=== PATIENT | female | born 1985 | race Caucasian/White ===

== ENCOUNTER 2016-10-23 13:57 | Outpatient (CLI) | payer OTHER ==
[2015-12-13 22:33] VITALS: BP 114/79
[2016-10-23 14:43] LABS: eGFR (African) > 60; eGFR (Non-African) > 60
== END 2016-10-23 14:00 ==
LOC: LAB 13:57
PROVIDERS: ATTEND Physician Assistant
DX: R20.0 Anesthesia of skin (principal)
CPT/HCPCS: 36415; 80053; 84443

== ENCOUNTER 2018-02-24 13:25 | Outpatient (CLI) | payer OTHER ==
[2015-12-13 22:33] VITALS: BP 114/79
[2018-02-24 14:08] LABS: BASOPHILS % 0.5 (0.0-1.5); EOSINOPHILS % 4.6 % (0.0-6.8); MEAN CORPUSCULAR HEMOGLOBIN 30.3 pg (28.0-34.0); MEAN CORPUSCULAR VOLUME 89.6 fl (80.0-100.0); MONOCYTES % 3.7 % (0.0-11.0)
[2018-02-24 14:24] LABS: eGFR (African) > 60; eGFR (Non-African) > 60
== END 2018-02-24 13:26 ==
LOC: LAB 13:25
PROVIDERS: ATTEND Physician Assistant
DX: R53.83 Other fatigue (principal)
CPT/HCPCS: 36415; 80053; 84436; 84479; 85025

== ENCOUNTER 2018-11-27 18:09 | Emergency (ER) | payer OTHER ==
--- NOTE | 2018-11-27 18:44 | ED Physician Documentation ---
Chest Pain - HISTORIAN Historian: patient - HPI Stated Complaint: Shortness of breath Chief Complaint: Chest Pain Additional Information: Patient presents to ED with chest pressure, 8/10, nonradiating. Patient was riding in the back seat of a car when her chest pressure began. She has a history of anxiety and was started on Prozac last Wednesday. She also takes hydroyzine as needed for anxiety. Patient took one tablet after her chest pressure started with no improvement. Patient is currently on antibiotics for urinary tract infection and states she has no urinary symptoms currently. Patient denies nausea, vomiting, diaphoresis, or dizziness. Onset: hours (4) Timing: sudden onset Duration: constant Last known Well Date: 11/27/18 Last Known Well Time: 14:00 Context: rest Severity: moderate Quality: pressure Chest Pain Radiation: no radiation Chest Pain Signs/Symptoms: denies: nausea, vomiting, diaphoresis, dizziness, palpitations Worsened By: nothing Relieved By: nothing - ROS CONST: denies: fever MS/LYMPH: denies: ankle swelling GI/: denies: vomiting, nausea EYES/ENT: none SKIN/ENDO: none NEURO/PSYCH: none - PAST HX VT risk factors: no pertinent history DVT/PE Risk Factors: none TAD/AAA risk factors: none Neuro deficit: none GI disease: none Lung disease: none Surgeries/Procedures: none Allergies/Adverse Reactions: Allergies Allergy/AdvReac Type Severity Reaction Status Date / Time codeine [Codeine] Allergy Hives Verified 11/27/18 18:32 - SOCIAL HX Smoking History: non-smoker Alcohol Use: none Drug Use: none - FAMILY HX Family HX: none - VITAL SIGNS Vital Signs: Vital Signs Temp Pulse Resp BP Pulse Ox 98.6 F 86 22 115/75 100 11/27/18 18:11 11/27/18 18:11 11/27/18 18:11 11/27/18 18:11 11/27/18 18:11 - REVIEWED ASSESSMENTS Nursing Assessment Reviewed: Yes Vitals Reviewed: Yes Progress - Progress Progress: 1911 Lab was called at 1855. 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 1917 Patient feeling better, currently on cell phone. - EKG/XRAY/CT EKG: NSR Comments: 1841 NSR 79 bpm ED Results Lab/Radiology - Radiology Radiology Impressions: Report Submission Date: November 27, 2018 6:53:51 PM CDT Patient Study Name: DIMPLE WOLFE Date: November 27, 2018 6:37:29 PM CDT Modality Type: DX Gender: F Description: CHEST 1VIEW : 85 Institution: [facility] Physician: CHINMAY RITCHIE Chest, 1 view History: ANXIETY AND CHEST PAIN WITH SHORTNESS OF BREATH TODAY. PATIENT DENIES CHANCE OF AND WAS SHIELDED FOR EXAM. Findings: The heart size is normal. The lungs are clear. There is no pleural effusion or pneumothorax identified. The osseous structures are normal. Impression: 1. No acute pulmonary disease. Electronically signed on November 27, 2018 6:53:51 PM CDT by: Brandyn Conde - Orders Orders: ED Orders Category Date Time Status Place IV Lock 1T Care 11/27/18 18:38 Ordered CHEST 1VIEW [RAD] Stat Exams 11/27/18 Ordered CBC/PLATELET/DIFF Routine Lab 11/27/18 Ordered CMP Routine Lab 11/27/18 Ordered TROPONIN I Stat Lab 11/27/18 Ordered OLANZapine ODT [ZyPREXA ODT] Med 11/27/18 18:38 Once 10 mg PO NOW ONE EKG WITH COMPARISON Stat Ther 11/27/18 Ordered Chest Pain Physical Exam - EXAM General Appearance: no acute distress, anxious EENT: JEFFERY Respiratory: no resp. distress, chest non-tender, nml breath sounds CVS: reg. rate & rhythm Abdomen: soft, normal bowel sounds. No: tenderness Skin: warm/dry Extremities: non-tender, no edema Neuro: oriented X3, mood/affect nml Discharge Clincal Impression: Anxiety Referrals: Primary Doctor,No [Primary Care Provider] - 2 Days Additional Instructions: 1. Continue to take anxiety medications as previously prescribed by PCP 2. Follow up with PCP within 1 week 3. Return to ER for new or worsening symptoms Condition: Stable Disposition: 01 HOME, SELF-CARE Decision to Admit: NO Date of Decison to Admit: 11/27/18 Decision Time: 20:09
[2018-11-27 19:43] LABS: MEAN CORPUSCULAR HEMOGLOBIN 30.7 pg (28.0-34.0)
[2018-11-27 19:44] LABS: BASOPHILS % 0.7 % (0.0-1.5); EOSINOPHILS % 4.2 % (0.0-6.8); MONOCYTES % 8.2 % (0.0-11.0); NEUTROPHILS # 5.4 # k/uL (1.4-7.7)
[2018-11-27 20:03] LABS: eGFR (Non-African) > 60
[2018-11-27 20:42] VITALS: BP 110/70
--- NOTE | 2018-11-27 20:50 | Diagnostic Imaging Report ---
CHINMAY RITCHIE [facility] [id number] [facility] [address] [place], [place]. [address] Report Submission Date: November 27, 2018 6:53:51 PM CDT Patient Study Name: DIMPLE WOLFE Date: November 27, 2018 6:37:29 PM CDT Modality Type: DX Gender: F Description: CHEST 1VIEW : 85 Institution: [facility] Physician: CHINMAY RITCHIE Chest, 1 view History: ANXIETY AND CHEST PAIN WITH SHORTNESS OF BREATH TODAY. PATIENT DENIES CHANCE OF AND WAS SHIELDED FOR EXAM. Findings: The heart size is normal. The lungs are clear. There is no pleural effusion or pneumothorax identified. The osseous structures are normal. Impression: 1. No acute pulmonary disease. Electronically signed on November 27, 2018 6:53:51 PM CDT by: Brandyn BALLARD
== END 2018-11-27 20:43 | disposition home or self-care (01) ==
LOC: ED 18:09
DX: F41.9 Anxiety disorder, unspecified (principal)
CPT/HCPCS: 36415; 71045; 80053; 84484; 85025; 99282; 99284; S1016